=== PATIENT | male | born 1985 | race African-American/Black ===

== ENCOUNTER 2024-02-04 21:45 | Inpatient (IN) | payer OTHER ==
[2024-02-04 22:13] VITALS: BMI 25.1
[2024-02-05] MEDS ORDERED: METHOCARBAMOL 500 MG TABLET PO PRN (00:53)
[2024-02-05] MEDS ORDERED: ACETAMINOPHEN 325 MG TABLET (FP) PO PRN (00:53)
[2024-02-05] MEDS ORDERED: BENZONATATE 200 MG CAPSULE PO PRN (00:53)
[2024-02-05] MEDS ORDERED: LOPERAMIDE HCL 2 MG CAPSULE PO PRN (00:53)
[2024-02-05] MEDS ORDERED: ONDANSETRON *ODT* 4 MG TABLET SL PRN (00:53)
[2024-02-05] MEDS ORDERED: BISMUTH SUBSALICYLATE 524 MG/30 ML PO PRN (00:53)
[2024-02-05] MEDS ORDERED: POLYETHYLENE GLYCOL (HEALTHYLAX) 3350 17 GM PACKET PO PRN (00:53)
[2024-02-05] MEDS ORDERED: guaiFENesin 600 MG TABLET.ER (FP) PO PRN (00:53)
[2024-02-05] MEDS ORDERED: IBUPROFEN 600 MG TABLET (FP) PO PRN (00:53)
[2024-02-05] MEDS ORDERED: MAGNESIUM HYDROX 2400MG/30ML ORAL SUSPENSION 30 ML CUP PO PRN (00:53)
[2024-02-05] MEDS ORDERED: NALOXONE (NARCAN) HCL 4 MG/0.1 ML SPRAY NS PRN (00:53)
[2024-02-05] MEDS ORDERED: MAG HYDROX/AL HYDROX/SIMETH 30 ML UNIT-DOSE CUP PO PRN (00:53)
[2024-02-05] MEDS ORDERED: hydrOXYzine PAMOATE 25 MG CAPSULE (FP) PO PRN (00:53)
[2024-02-05] MEDS ORDERED: NALOXONE HCL 0.4 MG/ML VIAL IM PRN (00:53)
[2024-02-05] MEDS ORDERED: BENZOCAINE/MENTHOL (CHLORASEPTIC ) LOZENGE MM PRN (00:53)
[2024-02-05] MEDS ORDERED: NICOTINE POLACRILEX 2 MG GUM BUC PRN (00:53)
[2024-02-05] MEDS ORDERED: IBUPROFEN 400 MG TABLET (FP) PO PRN (00:53)
[2024-02-05] MEDS ORDERED: DICYCLOMINE HCL 10 MG CAPSULE PO PRN (00:53)
[2024-02-05] MEDS ORDERED: cloNIDine HCL 0.1 MG TABLET PO PRN (00:57)
[2024-02-05] MEDS ORDERED: methaDONE HCL 10 MG TABLET (FOR DETOX USE ONLY) ONE (01:15)
[2024-02-05] MEDS: methaDONE HCL 10 MG TABLET (FOR DETOX USE ONLY) PO ONE (01:23)
[2024-02-05] MEDS: PRENATAL VITAMINS W/ FOLIC ACID TABLET (FP) PO SCH (10:10)
[2024-02-05] MEDS: NICOTINE 14 MG/24 HOURS TOPICAL PATCH TD SCH (10:10)
[2024-02-05] MEDS: THIAMINE 100 MG TABLET PO SCH (21:55)
[2024-02-05] MEDS: MELATONIN 5 MG TABLETS PO SCH (21:55)
[2024-02-06] MEDS: ARIPiprazole 5 MG TABLET PO SCH (10:23)
[2024-02-06 11:02] LABS: POTASSIUM 3.8 mmol/L (3.5-5.1)
[2024-02-06 11:06] LABS: CALCIUM 8.6 mg/dL (8.5-10.1)
[2024-02-06 11:07] LABS: HEMATOCRIT 46.7 % (35.4-49); MCH 28.2 pg (25.7-33.7); MCHC 32.1 g/dl (32.0-35.9); MEAN PLT VOLUME 8.4 fl (7.5-11.1); PLATELET COUNT 241 10^3/uL (134-434); RBC 5.31 M/mm3 (4.00-5.60); RDW 13.7 % (11.9-15.9); WHITE BLOOD COUNT 6.3 K/mm3 (4.0-10.0)
[2024-02-06 11:08] LABS: ALBUMIN 3.1 g/dl (3.4-5.0); BLOOD UREA NITROGEN 7.5 mg/dL (7-18)
[2024-02-06 11:11] LABS: CREATININE 0.8 mg/dL (0.55-1.3)
[2024-02-06 11:12] LABS: BILIRUBIN,TOTAL 0.5 mg/dL (0.2-1); TOT PROT 6.1 g/dl (6.4-8.2)
[2024-02-06 13:02] VITALS: BP 114/71; PULSE 54; RESP 18; TEMP 97.7
[2024-02-07] MEDS ORDERED: methaDONE HCL 10 MG TABLET (FOR DETOX USE ONLY) PO ONE (10:00)
[2024-02-09] MEDS ORDERED: methaDONE HCL 10 MG TABLET (FOR DETOX USE ONLY) PO ONE (10:00)
== END 2024-02-06 13:32 | disposition left against medical advice (07) | DRG 770 ==
LOC: YASAS 21:45 → Y3N 02-05 02:40
PROVIDERS: ADMIT Allergy & Immunology; ATTEND Allergy & Immunology
PROC: HZ2ZZZZ Detoxification Services for Substance Abuse Treatment (ICD-10-PCS; principal; 2024-02-05)
DX: F11.23 Opioid dependence with withdrawal (principal); F10.20 Alcohol dependence, uncomplicated; F14.20 Cocaine dependence, uncomplicated; F12.20 Cannabis dependence, uncomplicated; F25.1 Schizoaffective disorder, depressive type; Z56.0 Unemployment, unspecified; Z59.00 Homelessness unspecified; Z87.891 Personal history of nicotine dependence
CPT/HCPCS: 36415; 80053; 80305; 80307; 85027; 86780; 93005; 93010

== ENCOUNTER 2024-02-10 19:48 | Inpatient (IN) | payer OTHER ==
[2024-02-10 20:18] VITALS: BMI 25.8
[2024-02-10] MEDS ORDERED: MAGNESIUM HYDROX 2400MG/30ML ORAL SUSPENSION 30 ML CUP PO PRN (21:12)
[2024-02-10] MEDS ORDERED: IBUPROFEN 600 MG TABLET (FP) PO PRN (21:12)
[2024-02-10] MEDS ORDERED: POLYETHYLENE GLYCOL (HEALTHYLAX) 3350 17 GM PACKET PO PRN (21:12)
[2024-02-10] MEDS ORDERED: BENZOCAINE/MENTHOL (CHLORASEPTIC ) LOZENGE MM PRN (21:12)
[2024-02-10] MEDS ORDERED: guaiFENesin 600 MG TABLET.ER (FP) PO PRN (21:12)
[2024-02-10] MEDS ORDERED: NALOXONE (NARCAN) HCL 4 MG/0.1 ML SPRAY NS PRN (21:12)
[2024-02-10] MEDS ORDERED: NALOXONE HCL 0.4 MG/ML VIAL IM PRN (21:12)
[2024-02-10] MEDS ORDERED: LOPERAMIDE HCL 2 MG CAPSULE PO PRN (21:12)
[2024-02-10] MEDS ORDERED: BISMUTH SUBSALICYLATE 524 MG/30 ML PO PRN (21:12)
[2024-02-10] MEDS ORDERED: IBUPROFEN 400 MG TABLET (FP) PO PRN (21:12)
[2024-02-10] MEDS ORDERED: hydrOXYzine PAMOATE 25 MG CAPSULE (FP) PO PRN (21:12)
[2024-02-10] MEDS ORDERED: MAG HYDROX/AL HYDROX/SIMETH 30 ML UNIT-DOSE CUP PO PRN (21:12)
[2024-02-10] MEDS ORDERED: ACETAMINOPHEN 325 MG TABLET (FP) PO PRN (21:12)
[2024-02-10] MEDS ORDERED: ONDANSETRON *ODT* 4 MG TABLET SL PRN (21:12)
[2024-02-10] MEDS ORDERED: BENZONATATE 200 MG CAPSULE PO PRN (21:12)
[2024-02-10] MEDS ORDERED: DICYCLOMINE HCL 10 MG CAPSULE PO PRN (21:12)
[2024-02-11] MEDS ORDERED: PRENATAL VITAMINS W/ FOLIC ACID TABLET (FP) PO ONE (09:54)
[2024-02-11] MEDS: PRENATAL VITAMINS W/ FOLIC ACID TABLET (FP) PO SCH (09:55)
[2024-02-11 12:06] LABS: CHLORIDE 105 mmol/L (98-107); POTASSIUM 3.6 mmol/L (3.5-5.1); SODIUM 139 mmol/L (136-145)
[2024-02-11 12:14] LABS: HEMATOCRIT 44.6 % (35.4-49); HEMOGLOBIN 14.8 GM/dL (11.7-16.9); MCH 28.8 pg (25.7-33.7); MCHC 33.2 g/dl (32.0-35.9); MEAN CELL VOLUME 86.6 fl (80-96); MEAN PLT VOLUME 8.4 fl (7.5-11.1); PLATELET COUNT 255 10^3/uL (134-434); RBC 5.15 M/mm3 (4.00-5.60); RDW 13.5 % (11.9-15.9); WHITE BLOOD COUNT 6.7 K/mm3 (4.0-10.0)
[2024-02-11 12:17] LABS: ALBUMIN 3.1 g/dl (3.4-5.0); ANION GAP 5 mmol/L (4-13); BLOOD UREA NITROGEN 9.2 mg/dL (7-18); CALCIUM 8.7 mg/dL (8.5-10.1); CO2 29 mmol/L (21-32); GLUCOSE,RANDOM 100 mg/dL (74-106)
[2024-02-11 12:20] LABS: CREATININE 0.8 mg/dL (0.55-1.3); SGOT/AST 22 U/L (15-37); SGPT/ALT 25 U/L (13-61)
[2024-02-11 12:22] LABS: BILIRUBIN,TOTAL 0.3 mg/dL (0.2-1); TOT PROT 6.2 g/dl (6.4-8.2)
[2024-02-11 12:24] LABS: ALK PHOS 60 U/L (45-117)
[2024-02-11] MEDS ORDERED: ASPIRIN 81 MG CHEWABLE TABLETS ONE (12:34)
[2024-02-11] MEDS ORDERED: methaDONE HCL 10 MG TABLET (FOR DETOX USE ONLY) ONE (12:34)
[2024-02-11] MEDS: methaDONE HCL 10 MG TABLET (FOR DETOX USE ONLY) PO ONE (12:35)
[2024-02-11] MEDS: ASPIRIN 81 MG CHEWABLE TABLETS PO SCH (12:35)
[2024-02-11] MEDS: MELATONIN 5 MG TABLETS PO SCH (12:46)
[2024-02-11] MEDS: THIAMINE 100 MG TABLET PO SCH (12:46)
[2024-02-11] MEDS: cloNIDine HCL 0.1 MG TABLET PO PRN (22:33)
[2024-02-13] MEDS: methaDONE HCL 10 MG TABLET (FOR DETOX USE ONLY) PO ONE (09:38)
[2024-02-13] MEDS: METHOCARBAMOL 500 MG TABLET PO PRN (21:44)
[2024-02-14 17:00] VITALS: BP 124/73; PULSE 85; RESP 18; TEMP 97.5
== END 2024-02-14 17:07 | disposition home or self-care (01) | DRG 773 ==
LOC: YASAS 19:48 → Y3N 02-11 12:15
PROVIDERS: ADMIT Allergy & Immunology; ATTEND Surgery
PROC: HZ2ZZZZ Detoxification Services for Substance Abuse Treatment (ICD-10-PCS; principal; 2024-02-11)
DX: F11.23 Opioid dependence with withdrawal (principal); F10.20 Alcohol dependence, uncomplicated; F14.20 Cocaine dependence, uncomplicated; F16.10 Hallucinogen abuse, uncomplicated; F12.20 Cannabis dependence, uncomplicated; F17.210 Nicotine dependence, cigarettes, uncomplicated; F25.1 Schizoaffective disorder, depressive type; Z86.11 Personal history of tuberculosis; Z56.0 Unemployment, unspecified; Z59.00 Homelessness unspecified
CPT/HCPCS: 36415; 71046-TC-FY; 80053; 80305; 80307; 85027; 86780; 87811; 93005; 93010